=== PATIENT | male | born 1965 | race Caucasian/White ===

== ENCOUNTER 2018-07-04 10:27 | Emergency (ER) | payer OTHER ==
[~2018-07-04] VITALS: Ht 180.3 cm; Wt 74.8 kg
[2018-07-04 10:35] VITALS: Ht 180.3 cm; Wt 74.8 kg
[2018-07-04 12:26] VITALS: BP 139/85
== END 2018-07-04 12:58 | disposition home or self-care (01) ==
LOC: ED 10:27
DX: S86.812A Strain of other muscle(s) and tendon(s) at lower leg level, left leg, initial encounter (principal); W18.39XA Other fall on same level, initial encounter; Y93.89 Activity, other specified; Y92.89 Other specified places as the place of occurrence of the external cause; Y99.8 Other external cause status